=== PATIENT | male | born 1950 | race Caucasian/White ===

== ENCOUNTER → 2017-06-03 | Outpatient (CLI) | payer BC | END | disposition home or self-care (01) | LOC: C.PATHSPEC 17:30 | PROVIDERS: ATTEND Dentist Oral and Maxillofacial Surgery | DX: K06.1 Gingival enlargement (principal) ==

== ENCOUNTER → 2018-01-05 | Outpatient (CLI) | payer BC ==
--- NOTE | 2018-01-05 16:40 | DIAGNOSTIC IMAGING REPORT ---
CHEST 2 VIEWS ROUTINE CLINICAL HISTORY: R05 R63.4 pain COMPARISON STUDY: No previous studies for comparison. FINDINGS: The bones soft tissues and hemidiaphragms are normal. The cardiomediastinal silhouette is normal. The lungs are clear. The pulmonary vasculature is normal. IMPRESSION: Negative chest. The above report was generated using voice recognition software. It may contain grammatical, syntax or spelling errors. Electronically signed by: Tyler Duque M.D. 01/05/2018 4:39 PM Dictated Date/Time: 01/05/2018 4:38 PM
== END | disposition home or self-care (01) ==
LOC: C.RAD1850 16:19
PROVIDERS: ATTEND Family Medicine
DX: R05 Cough (principal); R63.4 Abnormal weight loss

== ENCOUNTER → 2018-01-10 | Outpatient (CLI) | payer BC ==
--- NOTE | 2018-01-07 09:50 | DIAGNOSTIC IMAGING REPORT ---
ABDOMEN PERCENT FOR HERNIA CLINICAL HISTORY: Right groin pain. COMPARISON STUDY: None. FINDINGS: Real-time sonographic imaging of the right inguinal region was performed with call center representative images submitted. There is a small fat-containing right inguinal hernia. This appears to completely reduce. No masses or fluid collections within the right groin. IMPRESSION: Reducible small fat-containing right inguinal hernia. Electronically signed by: Frank Otto M.D. 01/07/2018 9:48 AM Dictated Date/Time: 01/07/2018 9:47 AM
--- NOTE | 2018-01-07 11:04 | DIAGNOSTIC IMAGING REPORT ---
ADDENDUM Additional images of the pancreas obtained. The main pancreatic duct is distended up to 9 mm. A definite pancreatic mass is not identified. However, given both the pancreatic and bile duct dilatation this is suspicious for an occult pancreatic head lesion. Gastroenterology consultation is recommended for further evaluation. In addition, a dedicated pancreatic CT or MRI can also be performed to assess for a pancreatic mass. Electronically signed by: Frank Otto M.D. 01/11/2018 5:53 PM Dictated Date/Time: 01/11/2018 5:51 PM ORIGINAL REPORT ABDOMINAL ULTRASOUND COMPLETE HISTORY: WEIGHT LOSS, LFT ELEVATION. COMPARISON: None. FINDINGS: Pancreas: Images were not obtained of the pancreas during the examination. Liver: Moderate intrahepatic bile duct dilatation. No hepatic masses. Multiple punctate calcifications seen throughout the liver. The liver is mildly enlarged measuring 20 cm. Slight increased echogenicity within the liver suggestive of fatty change. Gallbladder: Mildly distended. No gallbladder wall thickening. Trace fluid adjacent to the gallbladder. There is a lobular hypoechoic 4.3 x 1.0 cm focus within the gallbladder lumen. This does not appear to be mobile. No definite stones. CBD: Distended up to 1.6 cm. Kidneys: No hydronephrosis. Normal in size. Spleen: Normal in size measuring 11.5 cm in length. Multiple splenic calcified granulomas. Aorta: Normal in caliber. Image of the distal aorta measuring 2.4 cm in diameter is likely due to the normal aortic bifurcation. No evidence for abdominal aortic aneurysm. IVC: Patent. IMPRESSION: 1. Incomplete study as the pancreas was not visualized. The patient was called and will return for repeat imaging. 2. Moderate intra and extra hepatic bile duct dilatation as described above. This raises the possibility of a distal common bile duct obstruction. MRCP should be considered for further evaluation. 3. Multiple hepatic and splenic calcified granulomas. 4. A 4.3 x 1.0 cm hypoechoic lobular focus within the gallbladder lumen. This favors a sludge ball. However, a large polyp could also have a similar appearance. Follow-up ultrasound in 6 months can be performed to ensure stability. Electronically signed by: Frank Otto M.D. 01/07/2018 11:03 AM Dictated Date/Time: 01/07/2018 10:59 AM
== END | disposition home or self-care (01) ==
LOC: C.ULTRBC 01-07 08:23
PROVIDERS: ATTEND Family Medicine
DX: R63.4 Abnormal weight loss (principal); R19.09 Other intra-abdominal and pelvic swelling, mass and lump

== ENCOUNTER → 2018-01-13 | Outpatient (CLI) | payer BC ==
--- NOTE | 2018-01-13 07:48 | DIAGNOSTIC IMAGING REPORT ---
MRCP CLINICAL HISTORY: 67 years-old Male presenting with abnormal ultrasound, jaundice, increasing bilirubin, diarrhea, history of skin cancer. TECHNIQUE: Multisequence, multiplanar MR imaging of the abdomen was performed without the use of intravenous contrast. IV contrast: None. COMPARISON: Ultrasound from 01/07/2018. FINDINGS: Localizer images: Unremarkable. Lung bases: Lungs and pleural spaces clear. Normal heart size. No pericardial or pleural effusion. Liver: Normal morphology. Biliary: Moderate diffuse intrahepatic biliary ductal dilatation. Marked dilatation of the extrahepatic bile duct, which measures 13 mm in the midportion. This remains dilated to the pancreatic head, where there is abrupt cut off. Normal gallbladder the mildly distended. No wall thickening or pericholecystic inflammatory change. No gross evidence of a polyp or gallbladder mass. Pancreas: Marked dilatation of the pancreatic duct, which measures 11 mm in the pancreatic head-neck and demonstrates abrupt cut off at the level of the head at the site of the common bile duct stenosis. Suspected ovoid/reniform 2.1 cm mass at the level of the ampulla/pancreatic head (series 6 image 20). This is adjacent to what appears to be duodenal thickening involving the descending portion. Spleen: Normal noncontrast appearance. Adrenal glands: Normal noncontrast appearance. Kidneys and ureters: Normal noncontrast appearance. No hydronephrosis. Normal ureters. Bowel: Wall thickening of the descending duodenum at the level of the major papilla. No bowel obstruction. Peritoneal cavity: No free fluid. Lymph nodes: No gross lymphadenopathy allowing for noncontrast technique. Vasculature: Normal noncontrast appearance. Abdominal wall: Normal. Musculoskeletal: Normal. IMPRESSION: 1. Suspected 2.1 cm pancreatic head mass at the level of the ampulla of Vater with associated duodenal wall thickening. This is most suspicious for an underlying pancreatic or duodenal neoplasm. Gastroenterology consultation for endoscopy and/or ERCP recommended. 2. Result in moderate biliary and pancreatic ductal dilatation. No cholelithiasis or gallbladder mass. The report will be called/faxed according to standard departmental protocol. Electronically signed by: Lee Beltre M.D. 01/13/2018 7:47 AM Dictated Date/Time: 01/13/2018 7:36 AM
== END | disposition home or self-care (01) ==
LOC: C.MRI 06:36
PROVIDERS: ATTEND Family Medicine
DX: R93.8 Abnormal findings on diagnostic imaging of other specified body structures (principal); R79.89 Other specified abnormal findings of blood chemistry